=== PATIENT | male | born 1980 | race Caucasian/White ===

== ENCOUNTER 2017-08-12 09:23 | Emergency (ER) | payer SELFPAY ==
[~2017-08-12] VITALS: Ht 175.2 cm; Wt 104.3 kg
[2017-08-12] MEDS ORDERED: DICLOFENAC SOD75 MG PO (09:31)
[2017-08-12] MEDS ORDERED: ZOLOFT100 MG PO (09:32)
[2017-08-12] MEDS ORDERED: ROBAXIN500 M1 PO (11:13)
== END 2017-08-12 11:33 | disposition home or self-care (01) ==
LOC: ED 09:23
DX: S13.4XXA Sprain of ligaments of cervical spine, initial encounter (principal); S09.90XA Unspecified injury of head, initial encounter; W22.8XXA Striking against or struck by other objects, initial encounter; Z79.899 Other long term (current) drug therapy; Y93.89 Activity, other specified; Y92.89 Other specified places as the place of occurrence of the external cause; Y99.8 Other external cause status